=== PATIENT | female | born 1975 | race African-American/Black ===

== ENCOUNTER 2016-11-24 15:24 | Emergency (ER) | payer MEDICAID, OTHER ==
[~2016-11-24] VITALS: Ht 154.9 cm; Wt 54.4 kg
[~2016-11-24 15:24] MED LIST: CITRANATAL B-C1 EAC1 PO; NITROFURANTOIN100 M2 ORAL; ONDANSETRON ODT4 MG ORAL; PRILOSEC10 M1 ORAL
--- NOTE | 2016-11-24 15:52 | Emergency Room Report ---
History of Present Illness General Chief Complaint: Skin Rash/Abscess Source: Patient Present Illness HPI 40 YO Female presents to the ED c/o burning, pain , swelling, and erythema of lateral left chin x 2 days. denies fevers. Pt states she tried hot pad with little to no relief. pt. states continues to swell and stay tender. denies ear pain, pain with opening mouth or swallowing. pt. denies recent illnesses or sore throat. denies rashes or abdominal pain. reports intermittent tooth pain and states " needs to see a dentist" Denies CP, Palpitations, LOC, AMS, dizziness, Changes in Vision, Sensation, paresthesias, or a sudden severe headache. Allergies: Coded Allergies: No Known Allergies (Unverified , 01/24/16) Patient History Past Medical History: see triage record Past Surgical History: none Pertinent Family History: none Last Menstrual Period: 11/10/16 Now: No Immunizations: UTD Reviewed Nursing Documentation: PMH: Agreed, PSxH: Agreed Review of Systems All Other Systems: negative except mentioned in HPI Physical Exam Vital Signs Date Time Temp Pulse Resp B/P Pulse Ox O2 Delivery O2 Flow Rate FiO2 11/24/16 15:37 99.1 93 14 99/68 100 Room Air Sp02 EP Interpretation: reviewed, normal General Appearance: no apparent distress, alert, GCS 15, non-toxic Head: normocephalic, atraumatic Eyes: bilateral eye PERRL, bilateral eye normal inspection ENT: hearing grossly normal, normal pharynx, no angioedema, normal voice, TMs + canals normal, uvula midline, moist mucus membranes, other - poor dentition, pt. has a cracked tooth # 21 in region of the tenderness and swelling to the left lower jaw line, with erythema about the gumline, no fluctuance noted. no appreciable pain with percussion of the tooth. no trismus or sub lingual swelling ttp. Neck: full range of motion, supple/symm/no masses Respiratory: lungs clear, normal breath sounds, speaking full sentences Cardiovascular #1: regular rate, rhythm, no edema Gastrointestinal: no guarding Musculoskeletal: back normal, gait/station normal, normal range of motion, non- tender, other - no TMJ ttp. Neurologic: alert, oriented x3, responsive, motor strength/tone normal, sensory intact, speech normal Psychiatric: judgement/insight normal, memory normal, mood/affect normal Skin: normal color, no rash, warm/dry, well hydrated, other - swelling, ttp to the left lower jaw/chin, small external lesion suspicious for insect bite, Lymphatic: no adenopathy Medical Decision Making PA Attestation Dr. Loja is my supervising Physician whom patient management has been discussed with. Diagnostic Impression: Primary Impression: Cellulitis Qualified Codes: L03.211 - Cellulitis of face Additional Impression: Abscess ER Course Pt. presents to the ED c/o burning, pain , swelling, and erythema of lateral left chin x 2 days. denies fevers. Ddx considered but are not limited to cellulitis, insect bite, dental infection , Ludwigs angina just to name a few. Vital signs: are WNL, pt. is afebrile H&PE are most consistent with possible insect bite with cellulitis will also treat to cover dental microbes as on PE pt. has poor dentition, and tooth in close proximity to area of swelling and ttp is broken, and has erythema at the gumline. ORDERS: none required at this time, the diagnosis is clinical ED INTERVENTIONS: -Toradol IM -Pt. given list of local free/reduce cost dental clinics. Pt. urged to follow up with PCP. DISCHARGE: At this time pt. is stable for d/c to home. Will provide printed patient care instructions, and any necessary prescriptions. Care plan and follow up instructions have been discussed with the patient prior to discharge. Last Vital Signs Date Time Temp Pulse Resp B/P Pulse Ox O2 Delivery O2 Flow Rate FiO2 11/24/16 15:37 99.1 93 14 99/68 100 Room Air Disposition: HOME, SELF-CARE Condition: Stable Scripts Ibuprofen* (MOTRIN*) 600 Mg Tablet 600 MG ORAL THREE TIMES A DAY, #20 TAB 0 Refills Prov: Francheska Johnson P.A. 11/24/16 Trimethoprim/Sulfamethoxazole 160/800* (BACTRIM DS TABLET*) 1 Each Tablet 1 TAB ORAL TWICE A DAY for 7 Days, #14 TAB Prov: Francheska Johnson P.A. 11/24/16 Penicillin V Potassium* (PENVK*) 500 Mg Tablet 500 MG PO Q6H for 7 Days, #28 TAB 0 Refills Prov: Francheska Johnson P.A. 11/24/16 Referrals: NON PHYSICIAN (PCP) Patient Instructions: Cellulitis, [id number] Additional Instructions: Take medications as directed. Follow up with PCP in 3-5 days Return sooner to ED if new symptoms occur, or current symptoms become worse. - Please note that this Emergency Department Report was dictated using [employer] secretary technology software, occasionally this can lead to erroneous entry secondary to interpretation by the dictation equipment. Francheska Johnson Nov 24, 2016 15:52
[2016-11-24] MEDS ORDERED: CEPHALEXIN500 MG ORAL (15:53)
[2016-11-24] MEDS ORDERED: BENADRYL ALLERG25 M1 PO (15:53)
[2016-11-24] MEDS ORDERED: BACTRIM DS TAB1 EAC1 ORAL (16:09)
[2016-11-24] MEDS ORDERED: PENICILLIN V P500 MG PO (16:09)
[2016-11-24] MEDS ORDERED: IBUPROFEN600 MG ORAL (16:09)
[2016-11-24] MEDS ORDERED: Ketorolac 60mg Inj IM ONE (16:15)
[2016-11-24] MEDS ORDERED: Penicillin Vk 250mg tab ORAL ONE (16:30)
[2016-11-24 16:42] VITALS: BP 99/68
[2016-11-24 16:45] VITALS: BP 99/68
== END 2016-11-24 16:46 | disposition home or self-care (01) ==
LOC: EMR 15:45
DX: L03.211 Cellulitis of face (principal); L02.01 Cutaneous abscess of face
CPT/HCPCS: 96372; 99284; C9399